=== PATIENT | female | born 1960 | race Caucasian/White ===

== ENCOUNTER 2018-02-21 08:09 | Day surgery (SDC) | payer BC, OTHER ==
[2018-02-21] MEDS: PROPARACAINE 0.5% OPHTH SOL 15ML OS (08:32)
[2018-02-21] MEDS: PHENYLEPHRINE 2.5% OPHTH SOL 2ML OS (08:32)
[2018-02-21] MEDS: TROPICAMIDE 1% OPHTH SOLN 2ML OS (08:33)
[2018-02-21] MEDS: OFLOXACIN 0.3 % (OCUFLOX) OPTH SOL 5ML OS (08:33)
[2018-02-21] MEDS ORDERED: MIDAZOLAM INJ 2 MG/2 ML VIAL (J2250) As Ordered (09:45)
[2018-02-21] MEDS ORDERED: fentaNYL 100 MCG/2 ML INJECTION (J3010) As Ordered (09:45)
[2018-02-21] MEDS: POVIDONE-IODINE 5% OPHTH PREP SOL 30ML As Ordered (09:57)
[2018-02-21] MEDS: LIDOCAINE 0.75%/EPINEPHRINE 0.025% IN BSS 1ML SYR INTRACAMERAL (OR ONLY) As Ordered (10:00)
[2018-02-21] MEDS: BALANCED SALT IRRIGATION SOLUTION 500ML BAG (FOR OR EYE MACHINE) As Ordered (10:01)
[2018-02-21] MEDS: DUOVISC (0.50ML VISCOAT/0.55ML PROVISC) OPHTH KIT As Ordered ×2 (10:05)
[2018-02-21] MEDS: CEFUROXIME 1MG/0.1ML INTRACAMERAL INJ As Ordered (10:05)
== END 2018-02-21 11:07 | disposition home or self-care (01) ==
LOC: M SDC 08:09
DX: H25.12 Age-related nuclear cataract, left eye (principal); H40.9 Unspecified glaucoma; I10 Essential (primary) hypertension; E78.5 Hyperlipidemia, unspecified; K21.9 Gastro-esophageal reflux disease without esophagitis; M12.9 Arthropathy, unspecified; M54.9 Dorsalgia, unspecified; F41.9 Anxiety disorder, unspecified; F32.9 Major depressive disorder, single episode, unspecified; G43.909 Migraine, unspecified, not intractable, without status migrainosus; F43.10 Post-traumatic stress disorder, unspecified; G47.30 Sleep apnea, unspecified; R63.6 Underweight; Z88.5 Allergy status to narcotic agent; Z79.899 Other long term (current) drug therapy; Z72.0 Tobacco use; Z98.51 Tubal ligation status
CPT/HCPCS: 66984

== ENCOUNTER 2018-02-28 09:27 | Day surgery (SDC) | payer BC, OTHER ==
[~2018-02-28 09:27] MED LIST: MIDAZOLAM INJ 2 MG/2 ML VIAL (J2250) As Ordered; fentaNYL 100 MCG/2 ML INJECTION (J3010) As Ordered
[2018-02-28] MEDS: OFLOXACIN 0.3 % (OCUFLOX) OPTH SOL 5ML OD (10:14)
[2018-02-28] MEDS: TROPICAMIDE 1% OPHTH SOLN 2ML OD (10:14)
[2018-02-28] MEDS: PROPARACAINE 0.5% OPHTH SOL 15ML OD (10:14)
[2018-02-28] MEDS: PHENYLEPHRINE 2.5% OPHTH SOL 2ML OD (10:14)
[2018-02-28] MEDS ORDERED: MIDAZOLAM INJ 2 MG/2 ML VIAL (J2250) As Ordered (11:37)
[2018-02-28] MEDS: BALANCED SALT IRRIGATION SOLUTION 500ML BAG (FOR OR EYE MACHINE) As Ordered (11:40)
[2018-02-28] MEDS: POVIDONE-IODINE 5% OPHTH PREP SOL 30ML As Ordered (11:40)
[2018-02-28] MEDS: DUOVISC (0.50ML VISCOAT/0.55ML PROVISC) OPHTH KIT As Ordered (11:40)
[2018-02-28] MEDS: CEFUROXIME 1MG/0.1ML INTRACAMERAL INJ As Ordered (11:41)
[2018-02-28] MEDS: LIDOCAINE 0.75%/EPINEPHRINE 0.025% IN BSS 1ML SYR INTRACAMERAL (OR ONLY) As Ordered (11:41)
== END 2018-02-28 12:40 | disposition home or self-care (01) ==
LOC: M SDC 09:27
DX: H25.11 Age-related nuclear cataract, right eye (principal); H40.1112 Primary open-angle glaucoma, right eye, moderate stage; I10 Essential (primary) hypertension; E78.5 Hyperlipidemia, unspecified; M12.9 Arthropathy, unspecified; K21.9 Gastro-esophageal reflux disease without esophagitis; M54.9 Dorsalgia, unspecified; F41.9 Anxiety disorder, unspecified; F32.9 Major depressive disorder, single episode, unspecified; G43.909 Migraine, unspecified, not intractable, without status migrainosus; F43.10 Post-traumatic stress disorder, unspecified; G47.30 Sleep apnea, unspecified; Z88.5 Allergy status to narcotic agent; Z79.899 Other long term (current) drug therapy; Z98.51 Tubal ligation status
CPT/HCPCS: 66984

== ENCOUNTER → 2018-07-25 | Outpatient (CLI) | payer BC, OTHER ==
[~2018-07-25] MED LIST changes: +BENI40TA26 PO; +BUPR10DI3 TOP; +BUSP10TA PO; +CYMB1CAP5 PO; +EZET10TA PO; +LATA5OPD OU; -MIDAZOLAM INJ 2 MG/2 ML VIAL (J2250) As Ordered; +OLME40TA PO; +OMEP40CA2 PO; +SUMA50TA2 PO; +TOPI100T9 PO; -fentaNYL 100 MCG/2 ML INJECTION (J3010) As Ordered
[2018-07-25 17:40] LABS: RHEUMATOID FACTOR QUANT < 10.0 IU/ML (<15.0)
--- NOTE | 2018-07-26 02:55 | REP ---
Clinical: Sarcoidosis . Comparison: 09/13/2012 . Technique: PA and lateral. Findings: The mediastinum and cardiac silhouette are normal. No obvious significant hilar adenopathy appreciated. The lung sprague are clear and without acute consolidation, effusion, or pneumothorax. The skeletal structures are intact and normal. Impression: No obvious acute process. No obvious significant adenopathy. Electronically Signed by Kole Ingram MD 07/26/2018 02:46 A
[2018-07-30 15:02] LABS: ANGIOTENSIN 1 CONVERTING ENZYM 41 U/L (14-82); HLA-B27 Negative (.); Lyme Disease IgG/IgM Antibodie <0.91 ISR (0.00-0.90); Lyme Disease IgM Ab Quantitati <0.80 index (0.00-0.79); SSA SJOGRENS A <0.2 AI (0.0-0.9); SSB SJOGRENS B <0.2 AI (0.0-0.9)
== END ==
LOC: M LAB 15:41
PROVIDERS: ATTEND Ophthalmology
DX: H20.012 Primary iridocyclitis, left eye (principal)

== ENCOUNTER 2018-09-27 12:59 | Day surgery (SDC) | payer BC, OTHER ==
[~2018-09-27] VITALS: Ht 172.7 cm; Wt 86.6 kg
[~2018-09-27 12:59] MED LIST changes: +XALA0.007 OU
[2018-09-27] MEDS ORDERED: NS 1,000 ML IV ONE (14:00)
[2018-09-27] MEDS ORDERED: PROPOFOL 200 MG/20 ML VIAL As Ordered ONE ×2 (14:24→14:42)
[2018-09-27] MEDS ORDERED: LIDOCAINE 2% INJ 100 MG/5 ML SDV (FOR ANES.) As Ordered ONE (14:24)
--- NOTE | 2018-09-27 14:47 | ROOR ---
Patient Name: Laila Rutherford Procedure Date: 09/27/2018 2:32 PM Date of : 1960 Age: 57 Room: [facility] Gender: Female Note Status: Finalized Procedure: Upper GI endoscopy Indications: Heartburn, Abnormal UGI series ("gastritis") Providers: Juan STONE MD Referring MD: CAMMY ARNETT Requesting Provider: Medicines: Monitored Anesthesia Care Complications: No immediate complications. Procedure: Pre-Anesthesia Assessment: - The heart rate, respiratory rate, oxygen saturations, blood pressure, adequacy of pulmonary ventilation, and response to care were monitored throughout the procedure. The Endoscope was introduced through the mouth, and advanced to the second part of duodenum. The upper GI endoscopy was accomplished without difficulty. The patient tolerated the procedure well. Findings: The examined esophagus was normal. The entire examined stomach was large and compliant, but otherwise normal. Biopsies were taken with a cold forceps for Helicobacter pylori testing. Small Hiatal Hernia. The examined duodenum was normal. Impression: - Normal esophagus. - Normal stomach (small intermittent hiatal hernia). Biopsied. - Normal examined duodenum. Recommendation: - Continue present medications. - Observe patient's clinical course. - Telephone endoscopist for pathology results in 2 weeks. Juan Stone MD Juan STONE MD 09/27/2018 2:46:55 PM This report has been signed electronically. Number of Addenda: 0 Note Initiated On: 09/27/2018 2:32 PM Estimated Blood Loss: Estimated blood loss: none.
[2018-09-27 15:20] VITALS: BP 144/84
== END 2018-09-27 15:26 | disposition home or self-care (01) ==
LOC: M OPP 12:59
PROVIDERS: ATTEND Internal Medicine Gastroenterology
DX: R93.3 Abnormal findings on diagnostic imaging of other parts of digestive tract (principal); R12 Heartburn; K44.9 Diaphragmatic hernia without obstruction or gangrene; Z79.899 Other long term (current) drug therapy; Z88.5 Allergy status to narcotic agent; F17.210 Nicotine dependence, cigarettes, uncomplicated

== ENCOUNTER → 2022-04-28 | Outpatient (CLI) | payer BC, OTHER ==
[~2022-04-28] MED LIST changes: -BENI40TA26 PO; -EZET10TA PO; +EZET10TA21 PO; +LATA0.0013 OU; -LATA5OPD OU; +OLME40TA56 PO; -OMEP40CA2 PO; +OMEP40CA4 PO
== END ==
LOC: M WUC 10:00
PROVIDERS: ATTEND Physician Assistant
DX: R07.89 Other chest pain (principal); F17.210 Nicotine dependence, cigarettes, uncomplicated; I10 Essential (primary) hypertension

== ENCOUNTER → 2025-05-12 | Outpatient (CLI) | payer BC ==
[~2025-05-12] MED LIST changes: -EZET10TA21 PO; +EZET10TA57 PO; +ISOVUE-370 76% 100 ML VIAL ONE; +TOPI-257 PO; -TOPI100T9 PO
== END ==
LOC: M PLAIMG 11:54
PROVIDERS: ATTEND Otolaryngology
DX: M54.2 Cervicalgia (principal); R09.A2 Foreign body sensation, throat
CPT/HCPCS: 70491; Q9967